=== PATIENT | male | born 1930 | race Two or more races ===

== ENCOUNTER 2021-07-03 12:48 | Emergency (ER) | payer OTHER ==
[~2021-07-03] VITALS: Ht 162.6 cm; Wt 68.0 kg
[2021-07-03] MEDS ORDERED: GLUMETZA1000 MG (13:33)
[2021-07-03] MEDS ORDERED: PRESERVISION L1 EACH (13:33)
[2021-07-03] MEDS ORDERED: ZESTRIL5 MG (13:33)
[2021-07-03] MEDS ORDERED: SERTRALINE HCL50 MG PO (13:33)
[2021-07-03] MEDS ORDERED: DORZOLAMIDE HCL10 ML (13:34)
[2021-07-03] MEDS ORDERED: LUMIGAN2.5 M1 (13:34)
[2021-07-03] MEDS ORDERED: GLIPIZIDE XL5 MG (13:34)
== END 2021-07-03 18:33 | disposition home or self-care (01) ==
LOC: ER 12:48
DX: R11.10 Vomiting, unspecified (principal)